=== PATIENT | male | born 1965 | race Caucasian/White ===

== ENCOUNTER 2019-01-12 13:42 | Day surgery (SDC) | payer OTHER, SELFPAY ==
--- NOTE | 2019-01-12 | PATH_ITS ---
[facility] Accession Number: [id number] . 01 Material submitted: . PART A: body - POLYP AT 60CM PART B: colon - ASCENDING COLON BX PART C: body - POLYP AT 50CM PART D: body - POLYP AT 30CM . 02 Diagnosis: A. Colon, Polyp at 60 cm, Biopsy: Tubular adenoma. . B. Ascending Colon, Biopsy: Favor inflammatory polyp. Negative for dysplasia and malignancy. . C. Colon, Polyp at 50 cm, Biopsy: Tubular adenoma. . D. Colon, Polyp at 30 cm, Biopsy: Tubular adenoma. MR/01/16/2019 . 02 Electronically signed: . Amelia Lancaster MD, Pathologist NPI- [id number] . 01 Gross description: . Received four formalin-filled containers, each labeled with the patient's name: . A. In a container labeled polyp at 60 cm, the specimen consists of a 0.3 cm portion of tissue, which is entirely submitted in cassette A. B. In a container labeled ascending colon, are two 0.2-0.3 cm portions of tissue, entirely submitted in cassette B. C. In a container labeled polyp at 50 cm, source confirmed per client, the specimen consists of a 0.2 cm portion of tissue, entirely submitted in cassette C. D. In a container labeled polyp at 30 cm, the specimen consists of a 0.2 cm portion of tissue, entirely submitted in cassette D. ([id number]) /FRR . 02 Pathologist provided ICD-10: D12.6 . 02 CPT . 952589, 640691, 508871, 819556 Performed at: [address] [id number] MD Franck Colunga MD Phone: [phone] Performed at: 02 [facility] [address] [place] [id number] MD Amelia Lancaster MD Phone: [phone]
[2019-01-12 14:40] VITALS: BP 123/73; PULSE 79; RESP 16; TEMP 37; O2SAT 98
[2019-01-12 14:49] VITALS: BMI 49.6
[2019-01-12] MEDS: SODIUM CHLORIDE 0.9% 1,000 ML 200 ML IV (15:10)
--- NOTE | 2019-01-12 16:02 | PM.HP.1 ---
History of Present Illness Date Patient Seen: 01/12/19 Time Patient Seen: 16:02 Chief complaint: [id number] Colonoscopy Narrative: Screening colonoscopy with a family history of colon cancer patient has had previous colonoscopies finding no polyps Patient History Social History household members: spouse Family & Social History Social History: household members spouse Meds Home Medications Medication Instructions Recorded Confirmed Type levothyroxine 25 mcg PO DAILY 01/12/19 01/12/19 History levothyroxine [Synthroid] 200 mcg PO QAM 01/12/19 01/12/19 History lisinopril 5 mg PO DAILY 01/12/19 01/12/19 History Allergies Allergy/AdvReac Type Severity Reaction Status Date / Time acetaminophen [From NyQuil] Allergy Anaphylaxis Verified 01/12/19 15:00 dextromethorphan Allergy Anaphylaxis Verified 01/12/19 15:00 [From NyQuil] doxylamine [From NyQuil] Allergy Anaphylaxis Verified 01/12/19 15:00 Tetanus Vaccines and Toxoid Allergy Verified 01/12/19 15:00 pseudoephedrine AdvReac Headache Verified 01/12/19 15:00 [From Actifed] triprolidine [From Actifed] AdvReac Headache Verified 01/12/19 15:00 Review of Systems Review of Systems All systems reviewed & are unremarkable except as noted in HPI and below Exam Vital Signs (past 8 hours): - 01/12/19 14:40 Temperature 98.6 F Pulse Rate 79 Respiratory Rate 16 Blood Pressure 123/73 Pulse Oximetry 98 Oxygen Delivery Method Room Air Narrative Exam Narrative: Patient is alert and oriented Lungs are clear with no rales or wheezes Heart regular rhythm no murmur Patient is morbidly obese abdominal exam is unrevealing. Rectal will be done at time of colonoscopy Assessment & Plan Assessment & Plan narrative: Patient is 6 super morbidly obese BMI of nearly 50 has a family history of colon cancer he is here for screening is had prior colonoscopies in understands and has no questions
[2019-01-12] MEDS: fentaNYL 250 MCG/5 ML INJ IV (16:30)
--- NOTE | 2019-01-12 16:30 | PM.OP.ENDO ---
Operative Date/Time/Diagnoses Date of procedure: 01/12/19 Time of procedure: 16:30 Pre-op diagnosis: Family history of colon cancer Post-op diagnosis: other (Multiple small polyps scattered throughout the colon at 30 50 and 60 cm ) Procedure & Clinicians Study performed: Total colonoscopy and polypectomy at 3550 and 60 cm with an additional biopsy in the ascending colon of a likely lipoma Same procedure as scheduled: Yes Surgeon: Davin Rodriguez Procedure Notes SCOAP/Timeout: Was done Procedure in detail: The patient was properly identified during surgical pause was given a total of 5 mg of Versed and 150 micro g of fentanyl throughout the procedure and remained comfortable. The flexible fiberoptic colonoscope was inserted transanally to the cecum. Patient had numerous small 5 mm polyps 1 at 30 50 and 60 cm these were all removed with the cold forceps and submitted. In the ascending colon there was most likely a submucosal lipoma and I did a biopsy there just to confirm there was no adenomatous tissue there I did not attempt to remove this subcu lipoma procedures very well tolerated Scope withdrawal time: 10 Sedation minutes: 20 Findings: polyp Specimen(s): other (Polyp at 30 50 and 60 cm with a biopsy in the ascending colon) Complications: none Recommendations: Colonscopy in 1 year
[2019-01-12] MEDS: MIDAZOLAM 5 MG/5 ML VIAL IV (16:31)
[2019-01-12 16:34] VITALS: BP 123/62; PULSE 72; RESP 16; TEMP 37.3; O2SAT 95
[2019-01-12 16:38] VITALS: BP 130/72; PULSE 72; RESP 16; O2SAT 96
== END 2019-01-12 17:04 | disposition home or self-care (01) ==
PROVIDERS: Visit Provider Surgery
PROC: 0DJD8ZZ Inspection of Lower Intestinal Tract, Via Natural or Artificial Opening Endoscopic (ICD-10-PCS; CPT 45378; principal; 2019-01-12 16:00)
DX: Z12.11 Encounter for screening for malignant neoplasm of colon (principal); Z80.0 Family history of malignant neoplasm of digestive organs; E66.01 Morbid (severe) obesity due to excess calories; Z68.43 Body mass index [BMI] 50.0-59.9, adult
CPT/HCPCS: 45380; 88305; 99152; J2250; J3010

== ENCOUNTER → 2020-01-08 09:13 | Outpatient (CLI) | payer OTHER, SELFPAY ==
[2020-01-09 14:44] LABS: COVID19 Sendout Not Detected (Not Detect)
== END ==
PROVIDERS: PCP Internal Medicine; Visit Provider Physician Assistant
DX: Z11.59 Encounter for screening for other viral diseases (principal)
CPT/HCPCS: 87635

== ENCOUNTER 2020-01-11 08:42 | Day surgery (SDC) | payer OTHER, SELFPAY ==
--- NOTE | 2020-01-11 | PATH_ITS ---
[facility] Accession Number: [id number] . 01 Material submitted: . PART A: colon - COLON POLYP AT 75CM PART B: colon - COLON POLYP AT 55CM . 02 Diagnosis: A. Colon at 75 cm, Polyp: Tubular adenoma. . B. Colon at 55 cm, Polyp: Tubular adenoma. MRV 01/14/2020 1121 Local . 02 Electronically signed: . Jose Wallace MD, PhD, Pathologist NPI- [id number] . 01 Gross description: . Part A: COLON POLYP AT 75CM: Received in formalin is 1 fragment(s) of calixto, soft tissue measuring 0.4 x 0.4 x 0.3 cm submitted entirely in 1 cassette(s) Part B: COLON POLYP AT 55CM: Received in formalin is 1 fragment(s) of calixto, soft tissue measuring 0.5 x 0.2 x 0.2 cm submitted entirely in 1 cassette(s) /QBJ 01/12/2020 0426 Local . 02 Pathologist provided ICD-10: D12.6 . 02 CPT . 255135, 367377 Performed at: 01 [facility] [address] [place] [address], [place], [place] [id number] MD Franck Colunga MD Phone: [phone] Performed at: 02 [facility] [address] [place], [place] [id number] MD Amelia Lancaster MD Phone: [phone]
[2020-01-11 08:55] VITALS: BP 135/82; PULSE 77; RESP 20; TEMP 36.7; O2SAT 98; BMI 44.9
[2020-01-11] MEDS: SODIUM CHLORIDE 0.9% 1,000 ML 200 ML IV (09:03)
--- NOTE | 2020-01-11 09:35 | PM.HP.1 ---
History of Present Illness History of Present Illness Date Patient Seen: 01/11/20 Time Patient Seen: 09:35 Chief complaint: [id number] Narrative: 54-year-old man with history of sleep apnea, morbid obesity with a BMI of 45, hypothyroid, hypertension, family history of colon cancer, and multiple polyps found on his colonoscopy 1 year ago. He was recommended by Dr. Rodriguez to have a 1 year follow-up and he is here for that at this time. He denies any intervening symptoms of melena, hematochezia, unexplained weight loss, unexplained abdominal pain. ROS: Thirteen system review is otherwise negative other than as mentioned below and in HPI. PE: GENERAL: Well groomed and cooperative. Morbidly obese. Appears stated age. Answers questions promptly and appropriately. Vital signs noted. HENT: Normocephalic, atraumatic. Hearing intact. EYES: Conjunctiva pink, sclera white, no periorbital swelling. CARDIOVASCULAR: Regular rate. No pedal edema. RESPIRATORY: Non-tachypneic, breathing comfortably on room air. GASTROINTESTINAL: Abdomen soft and non-distended GENITALURINARY: No flank tenderness. MUSCULOSKELETAL: Equal tone and mass bilaterally. SKIN: Warm, dry, soft, appropriate color for ethnicity. No other lesions, rashes, or wounds. NEURO: Alert and Oriented X 3. No gross sensory deficits, or cognitive issues. PSYCH: Appropriate affect and mood. Patient History Family & Social History Social History: household members spouse Tobacco & Substance use: Smoking Status Former smoker alcohol intake frequency holiday/special occasion Substance Use Type does not use Meds Home Medications and Allergies Home Medications Medication Instructions Recorded Confirmed Type levothyroxine 25 mcg PO DAILY 01/12/19 01/11/20 History levothyroxine [Synthroid] 200 mcg PO QAM 01/12/19 01/11/20 History lisinopril 5 mg PO DAILY 01/12/19 01/11/20 History Allergies Allergy/AdvReac Type Severity Reaction Status Date / Time acetaminophen [From NyQuil] Allergy Anaphylaxis Verified 01/11/20 08:42 dextromethorphan Allergy Anaphylaxis Verified 01/11/20 08:42 [From NyQuil] doxylamine [From NyQuil] Allergy Anaphylaxis Verified 01/11/20 08:42 Tetanus Vaccines and Toxoid Allergy Verified 01/11/20 08:42 pseudoephedrine AdvReac Headache Verified 01/11/20 08:42 [From Actifed] triprolidine [From Actifed] AdvReac Headache Verified 01/11/20 08:42 Exam Vital Signs (past 8 hours): - 01/11/20 08:55 Temperature 98.1 F Pulse Rate 77 Respiratory Rate 20 Blood Pressure 135/82 Pulse Oximetry 98 Oxygen Delivery Method Room Air Assessment & Plan Assessment and plan (1) KEVON (obstructive sleep apnea): Status: Acute (2) Morbid obesity with BMI of 40.0-44.9, adult: Status: Acute (3) Personal history of colonic polyps: Status: Acute (4) Family history of colon cancer: Status: Acute Assessment & Plan narrative: Risks and benefits of screening colonoscopy and possible polypectomy were discussed with the patient including risk of bleeding, perforation, need for additional procedures, risks of anesthesia. We have discussed the increased risk of the procedure given his severe morbid obesity and his obstructive sleep apnea. The patient desires to proceed with the colonoscopy procedure. COVID-19 COVID-19 status: Negative Result date/Date tested (Pos, Neg/Pending): 01/08/20 Time Spent With Patient Time with patient: 15-24 minutes Quality VTE Deep Vein Thrombosis/Pulmonary Embolism Present on Admission: No
--- NOTE | 2020-01-11 10:20 | PM.OP.ENDO ---
Operative Date/Time/Diagnoses Date of procedure: 01/11/20 Time of procedure: 10:20 Pre-op diagnosis: Personal history of colon polyps, family history of colon cancer Procedure & Clinicians Indications: Patient had multiple polyps removed [address] Rodriguez, and was recommended to have a follow-up colonoscopy at this time Procedural sedation with fentanyl and Versed given by the endoscopist Surgeon: Carmina Dyson Procedure Notes SCOAP/Timeout: Perform Procedure in detail: The patient was brought to the room and placed in left lateral decubitus position with all bony prominences padded. A time-out was performed and then the patient was given procedural sedation starting with [4] mg of Versed and [100] mcg of fentanyl. A total of 5 mg of Versed and 150 micro g of fentanyl were given for the entire procedure. Vtals were monitored throughout the procedure and remained stable. Once adequately sedated, the procedure was begun. A rectal exam was performed revealing [no abnormalities]. The colonoscope was then introduced to the rectum and advanced to the cecum in the usual fashion. []The cecum was identified by the appendiceal orifice, the mucosal tri-fold, and the ileocecal valve. A large Submucosal prominence about 2 cm was seen and is 120 cm which may have been an abnormal fold or a submucosal neoplasm such as a lipoma or stromal tumor a smaller submucosal prominence which was photographed by Dr. Robb last year was also seen at 100 cm. Adenomatous appearing polyps were seen at 75 cm and 55 cm and removed with hot snare. The scope was then retracted while rotating side to side and examining each mucosal fold. [] At the conclusion of the procedure retroflexion was performed and [small grade 1-2 internal hemorrhoids without stigmata of bleeding were seen]. The scope was then withdrawn from the rectum the procedure was concluded. The patient tolerated the procedure well and was transferred to the PACU in stable condition. Scope withdrawal time: 21 Sedation minutes: 30 Findings: polyp and other findings (Submucosal prominence possible stromal tumor near cecum) Specimen(s): other (Two adenomatous appearing polyps) Complications: none Impression: Submucosal prominence needs to be evaluated with CT or MRI imaging, 2 polyps on 1 year interval colonoscopy Post-procedure Recommendations: Colonscopy in 1 year and Other recommendation (CT or MRI imaging to evaluate submucosal neoplasm in the right colon) Follow up: weeks (Follow-up in 2 weeks) Disposition: PACU
[2020-01-11] MEDS: MIDAZOLAM 5 MG/5 ML VIAL IV (10:28)
[2020-01-11] MEDS: fentaNYL 250 MCG/5 ML INJ IV (10:28)
[2020-01-11 10:57] VITALS: BP 145/89; PULSE 63; RESP 25; TEMP 37.2; O2SAT 94
[2020-01-11 11:00] VITALS: BP 109/60; PULSE 65; RESP 27; O2SAT 95
[2020-01-11 11:05] VITALS: BP 106/66; PULSE 65; RESP 21; TEMP 36.6; O2SAT 95
[2020-01-11 11:14] VITALS: BP 114/57; PULSE 63; RESP 24; TEMP 36.3; O2SAT 97
== END 2020-01-11 11:21 | disposition home or self-care (01) ==
PROVIDERS: PCP Internal Medicine; Referring Provider Surgery; Visit Provider Surgery
PROC: 0DJD8ZZ Inspection of Lower Intestinal Tract, Via Natural or Artificial Opening Endoscopic (ICD-10-PCS; CPT 45378; principal; 2020-01-11 10:00)
DX: Z12.11 Encounter for screening for malignant neoplasm of colon (principal); Z80.0 Family history of malignant neoplasm of digestive organs; Z68.41 Body mass index [BMI] 40.0-44.9, adult; E66.01 Morbid (severe) obesity due to excess calories; G47.33 Obstructive sleep apnea (adult) (pediatric); K64.0 First degree hemorrhoids; D12.6 Benign neoplasm of colon, unspecified
CPT/HCPCS: 45385; 99152; 99153; J2250; J3010

== ENCOUNTER → 2020-01-18 13:36 | Outpatient (CLI) | payer OTHER, SELFPAY ==
--- NOTE | 2020-01-18 13:42 | DI.CT.S_ITS ---
PROCEDURE: CT ABDOMEN PELVIS W CON INDICATIONS: intramural/submucosal mass within wall of right colon/cecum TECHNIQUE: After the administration of intravenous contrast, 5 mm thick sections acquired from the diaphragm to the symphysis. 5 mm coronal and sagittal reformats were acquired. For radiation dose reduction, the following was used: automated exposure control, adjustment of mA and/or kV according to patient size. COMPARISON: None. FINDINGS: Image quality: Somewhat diminished by large body habitus.. ABDOMEN: Lung bases: Lung bases are clear. Heart size is normal. Solid organs: Liver is normal in size and enhancement and demonstrates prominent fatty infiltration. No hepatic mass lesion is seen.. Gallbladder is contracted . Biliary system is non dilated. Pancreas enhances normally. Spleen is normal in size and enhancement. No adrenal nodules. Kidneys demonstrate normal size and enhancement, without hydronephrosis. What likely is a cyst is seen at the anterior cortex of the right mid kidney, series 2, image 45. This is water in radiodensity at 10.9 Hounsfield units and blurred by body habitus. Peritoneum and bowel: Bowel loops demonstrate normal wall thickness and caliber. No free fluid or air. Nodes and vessels: No retroperitoneal or mesenteric adenopathy by size criteria. Aorta and inferior vena cava are normal in size. Miscellaneous: No ventral hernias. PELVIS: Genitourinary: Bladder wall thickness is normal. Miscellaneous: No inguinal hernias or adenopathy. Bones: No suspicious bony lesions. No vertebral body compression fractures. What appears to be a normal appendix, without adjacent inflammation, can be seen wrapping posterior to the cecum, and an adjacent extra mural mass or evidence of mucosal mass lesion is not seen at or adjacent to the cecum. IMPRESSION: Normal appendix found. No mass lesion identified at or adjacent to the cecum. Fatty infiltration throughout the liver, moderately contracted gallbladder incidentally noted. Dictated by: Harley Sutton M.D. on 01/18/2020 at 14:25 Approved by: Harley Sutton M.D. on 01/18/2020 at 14:29
== END ==
PROVIDERS: PCP Internal Medicine; Referring Provider Surgery; Visit Provider Surgery
DX: D17.5 Benign lipomatous neoplasm of intra-abdominal organs (principal); K76.0 Fatty (change of) liver, not elsewhere classified
CPT/HCPCS: 74177; Q9967

== ENCOUNTER → 2021-03-25 09:20 | Outpatient (CLI) | payer OTHER, SELFPAY ==
[2021-03-25 11:23] LABS: COVID19 -Nasal RAPID Negative (Negative)
== END ==
PROVIDERS: PCP Internal Medicine; Visit Provider Surgery
DX: Z20.822 Contact with and (suspected) exposure to COVID-19 (principal); Z01.812 Encounter for preprocedural laboratory examination
CPT/HCPCS: 87635; C9803

== ENCOUNTER 2021-03-26 13:27 | Day surgery (SDC) | payer OTHER, SELFPAY ==
--- NOTE | 2021-03-26 | PATH_ITS ---
[facility] Accession Number: [id number] . 01 Material submitted: . PART A: cecum - CECUM POLYP X2 PART B: colon - TRANSVERSE COLON POLYP X2 PART C: colon - DESCENDING COLON POLYP PART D: rectum - RECTUM POLYP . 02 Diagnosis: A. Cecal Polyps, Biopsies: Colonic mucosa with no diagnostic abnormality, consistent with polypoid redundancy x2. Negative for serrated lesion, dysplasia or malignancy. . B. Transverse Colon Polyps, Biopsies: Fragments of tubular adenoma (two polyps removed). . C. Descending Colon Polyp, Biopsy: Tubular adenoma. . D. Rectal Polyp, Biopsy: Tubular adenoma. MRV 03/30/2021 1345 Local . 02 Electronically signed: . Jose Wallace MD, PhD, Pathologist NPI- [id number] . 01 Gross description: . Part A: CECUM POLYP X2: Received in formalin are 2 fragment(s) of calixto, soft tissue measuring 0.3 x 0.2 x 0.2 cm to 0.3 x 0.1 x 0.1 cm submitted entirely in 1 cassette(s) Part B: TRANSVERSE COLON POLYP X2: Received in formalin are multiple fragment(s) of calixto, soft tissue measuring 2.7 x 0.4 x 0.2 cm in aggregate submitted entirely in 1 cassette(s) Part C: DESCENDING COLON POLYP: Received in formalin is 1 fragment(s) of calixto, soft tissue measuring 0.8 x 0.3 x 0.2 cm submitted entirely in 1 cassette(s) Part D: RECTUM POLYP: Received in formalin is 1 fragment(s) of calixto, soft tissue measuring 0.4 x 0.2 x 0.2 cm submitted entirely in 1 cassette(s) /JESUS 03/27/2021 0221 Local . 02 Pathologist provided ICD-10: D12.3, D12.4, D12.8 . 02 CPT . 115259, 354248, 374635, 731439 Performed at: 01 [facility] [address] [id number] MD Franck Colunga MD Phone: [phone] Performed at: 02 [facility] [address] [place], [place] [id number] MD Amelia Lancaster MD Phone: [phone]
[2021-03-26 13:52] VITALS: BP 144/77; PULSE 81; RESP 14; TEMP 36.8; O2SAT 97; BMI 50.1
--- NOTE | 2021-03-26 14:59 | PM.HP.1 ---
History of Present Illness History of Present Illness Date Patient Seen: 03/26/21 Time Patient Seen: 15:00 Chief complaint: SDC Narrative: The patient presents for colorectal sreening. He has had numerous colonoscopies greater 10 secondary to a personal history of colonic polyps as well as family history of colon cancer. His most recent colonoscopy was 1 year ago which demonstrated multiple benign polyps. On further history denies any recent gastrointestinal symptoms. No nausea, vomiting, abdominal pain, loss of appetite, unexplained weight loss, change in bowel habits, diarrhea, constipation, melena, hematochezia, or bright red blood per rectum. Patient History Family & Social History Social History: household members spouse Tobacco & Substance use: Smoking Status Former smoker alcohol intake current alcohol intake frequency holiday/special occasion Substance Use Type does not use Meds Home Medications and Allergies Home Medications Medication Instructions Recorded Confirmed Type levothyroxine 200 mcg tablet 200 mcg PO QAM 01/12/19 01/31/20 History (Synthroid) levothyroxine 25 mcg/mL oral 25 mcg PO DAILY 01/12/19 03/26/21 History solution lisinopril 5 mg tablet 5 mg PO DAILY 01/12/19 03/26/21 History levothyroxine 200 mcg tablet 250 mcg PO DIRECTED 03/26/21 03/26/21 History (Synthroid) Allergies Allergy/AdvReac Type Severity Reaction Status Date / Time acetaminophen [From NyQuil] Allergy Anaphylaxis Verified 01/31/20 09:04 dextromethorphan Allergy Anaphylaxis Verified 01/31/20 09:04 [From NyQuil] doxylamine [From NyQuil] Allergy Anaphylaxis Verified 01/31/20 09:04 Tetanus Vaccines and Toxoid Allergy Verified 01/31/20 09:04 pseudoephedrine AdvReac Headache Verified 01/31/20 09:04 [From Actifed] triprolidine [From Actifed] AdvReac Headache Verified 01/31/20 09:04 Exam Vital Signs (past 8 hours): - 03/26/21 13:52 Temperature 98.2 F Pulse Rate 81 Respiratory Rate 14 Blood Pressure 144/77 H Pulse Oximetry 97 Oxygen Delivery Method Room Air Narrative Exam Narrative: Constitutional-he is oriented to person, place and time. No apparent distress Cardiovascular- regular rate, no peripheral edema Pulmonary-unlabored respiratory effort, no audible wheezing Abdominal-soft, non-tender, non-distended Musculoskeletal-no cyanosis or clubbing Neurological-nonfocal, normal strength throughout, Skin-warm and dry Assessment & Plan Assessment and plan (1) Personal history of colonic polyps: Status: Acute Assessment & Plan narrative: The patient requires colorectal screening and colonoscopy is recommended. Technical details were discussed. Risks, benefits, alternatives explained. Risks including but not limited to myocardial infarction, aspiration, bleeding, pain, missed lesion, incomplete examination, need for further radiographic studies, colonic perforation, and need for major abdominal surgery were discussed. All questions were answered to their satisfaction, and they are in agreement with this plan. Time Spent With Patient Critical Care time: I spent a total of [] minutes of critical care time on this patient's care today; this time is exclusive of procedural time.
[2021-03-26] MEDS: MIDAZOLAM 5 MG/5 ML VIAL IV (15:12)
[2021-03-26] MEDS: fentaNYL 250 MCG/5 ML INJ IV (15:12)
--- NOTE | 2021-03-26 15:38 | PM.OP.COLON ---
Operative Date/Time/Diagnoses Date of procedure: 03/26/21 Time of procedure: 15:39 Pre-op diagnosis: Personal history of colonic polyps, family history of colon cancer Post-op diagnosis: same Procedure & Clinicians Study performed: Colonoscopy Same procedure as scheduled: Yes Indications: Personal history of colonic polyps, family history of colon cancer Surgeon: Chano Castellon Procedure Notes Procedure in detail: Medications: Conscious sedation using 6mg IV midazolam and 150mcg IV of fentanyl The history and physical was performed/updated and the patient is ASA class is 3. The procedure was discussed in detail with the patient. Potential risks complications including infection, bleeding, missed diagnosis, perforation, need for surgery, and were explained. Their questions were answered and informed consent was obtained. Patient was brought to the procedure room and placed standard monitoring equipment. The patient's vital signs were monitored continuously throughout the entire procedure. Prior to starting time-out was performed. The patient was placed in the left lateral recumbent position. Procedural sedation was administered. Examination began with a thorough inspection of the perianal area there was no evidence of fissures, fistulae, external hemorrhoids or cutaneous malignancy. The colonoscopy scope was then placed into the anal canal and was advanced to the cecum, which was identified by the ileocecal valve, the appendiceal orifice and the confluence of the taenia. The scope was then slowly withdrawn examining colon thoroughly in all directions, irrigating it of any residual stool. FINDINGS 1. Submucosal mass lipoma right colon 2. Cecal polyps 5 mm each x2 removed biopsy forceps 3. Transverse polyps less than 1 cm each removed with cold snare 4. Descending colonic polyp 5 mm removed with snare cold 5. Rectal polyp 5 mm removed with biopsy forceps The patient tolerated the procedure well. They will be discharged once criteria are met. The prep was of good/excellent quality. The withdrawl time was 20 minutes. The sedation time was 30 minutes. Specimen(s): other (cecum x 2, transverse x 2, descending colon, rectum) Impression: colonic polyps Post-procedure Recommendations: Colonoscopy in 1 year Disposition: same day surgery
[2021-03-26 15:42] VITALS: BP 124/71; PULSE 74; RESP 20; TEMP 36.9; O2SAT 98
[2021-03-26 15:45] VITALS: BP 96/45; PULSE 73; RESP 14; O2SAT 98
[2021-03-26 15:58] VITALS: BP 102/57; PULSE 73; RESP 14; O2SAT 98
[2021-03-26 16:02] VITALS: BP 104/59; PULSE 71; RESP 10; TEMP 36.8; O2SAT 99
[2021-03-26 16:06] VITALS: BP 115/63; PULSE 72; RESP 15; TEMP 36.9; O2SAT 100
[2021-03-26 17:50] VITALS: BMI 50.1
== END 2021-03-26 17:20 | disposition home or self-care (01) ==
PROVIDERS: PCP Internal Medicine; Referring Provider Surgery; Visit Provider Surgery
PROC: 0DJD8ZZ Inspection of Lower Intestinal Tract, Via Natural or Artificial Opening Endoscopic (ICD-10-PCS; CPT 45378; principal; 2021-03-26 15:15)
DX: Z12.11 Encounter for screening for malignant neoplasm of colon (principal); Z86.010 Personal history of colon polyps; Z80.0 Family history of malignant neoplasm of digestive organs; D17.79 Benign lipomatous neoplasm of other sites; D12.3 Benign neoplasm of transverse colon; D12.4 Benign neoplasm of descending colon; D12.8 Benign neoplasm of rectum
CPT/HCPCS: 45385; 45380; 99152; 99153; J2250; J3010

== ENCOUNTER → 2021-10-05 14:26 | Outpatient (CLI) | payer OTHER, SELFPAY ==
--- NOTE | 2021-10-05 14:29 | DI.ECHO.S_ITS ---
[place] [facility]---------+ [facility] +---------+ : : [address] : : : : [id number] : : : : Phone: [phone]---------+ Echocardiogram Report + + :Name: STEPHANI JACKMAN Study Date: 10/05/2021 Height: 73 in : :[facility] ReadingLocation: Weight: 380 lb : : Gender: Male BSA: 2.8 m2 : :: 1965 Age: 56 yrs BP: 156/88 mmHg: :Reason For Study: DYSPNEA : :Ordering Physician: TRIXIE, : :AMADOR Performed By: Alycia Moses : :Referring: AMADOR MARCUM : + + Interpretation Summary The study quality was technically difficult. The ejection fraction is estimated to be 60-65%. There is mild concentric left ventricular hypertrophy. The right ventricle is normal in size and function. There is mild to moderate aortic regurgitation. No prior studies available for comparison. Procedure: A two-dimensional transthoracic echocardiogram with color flow and Doppler was performed. The study quality was technically difficult. There is no prior echocardiogram noted for this patient. The patient was in sinus rhythm with heart rates between 62-75 bpm during the exam. Left Ventricle: The left ventricle is normal in size. There is mild concentric left ventricular hypertrophy. The ejection fraction is estimated to be 60-65%. There are no obvious focal wall motion abnormalities noted but poor endocardial definition reduces the sensitivity for the detection of such. Diastolic parameters suggest probable normal left ventricular diastolic function and normal filling pressures. Right Ventricle: The right ventricle is normal in size and function. Atria: The left atrial size is normal. Right atrial size is normal. There is no Doppler evidence for an interatrial shunt. Mitral Valve: The mitral valve is normal in structure and function. There is mild mitral annular calcification. There is trace mitral regurgitation. Aortic Valve: The aortic valve opens well. The aortic valve is trileaflet. There is no aortic valve stenosis. There is mild to moderate aortic regurgitation. Tricuspid Valve: The tricuspid valve is normal in structure and function. There is trace tricuspid regurgitation. Pulmonic Valve: The pulmonic valve leaflets are thin and pliable; valve motion is normal. There is no pulmonic valvular regurgitation. Great Vessels: The aortic root is normal size. The ascending aorta is normal in size. The inferior vena cava was not well visualized. Pericardium/ Pleura There is no pericardial effusion. There is no pleural effusion. MMode/2D Measurements & Calculations LVIDd: 5.7 cm LVOT diam: 2.0 cm LVIDs: 3.6 cm Ao root diam: 3.7 cm FS: 37.9 % asc Aorta Diam: 3.4 cm IVSd: 1.1 cm LVPWd: 1.3 cm LV hill. diameter/BSA (cm/m^2): 2.0 LV sys. diameter/BSA (cm/m^2): 1.3 LA A2 area: 21.7 cm2 RA long axis: 4.9 cm LA A4 area: 20.7 cm2 RA area: 14.1 cm2 LA length (vol): 5.6 cm RA vol: 34.2 ml LA vol: 67.9 ml RA : 12.1 ml/m2 LA vol index: 24.0 ml/m2 RVD1 (basal): 2.6 cm RVD2 (mid): 2.0 cm TAPSE: 2.5 cm Doppler Measurements & Calculations Ao V2 max: 144.1 cm/sec LVOT Max Siobhan: 129.2 cm/sec Ao V2 mean: 100.9 cm/sec LV V1 max P.7 mmHg Ao max P.5 mmHg LV V1 VTI: 25.4 cm Ao mean P.3 mmHg JESUS(I,D): 2.8 cm2 Ao V2 VTI: 28.4 cm JESUS(V,D): 2.8 cm2 sev ratio: 0.89 JESUS indexed to BSA (cm^2/m^2): 0.99 MV E max siobhan: 100.2 cm/sec PA V2 max: 113.6 cm/sec MV A max siobhan: 74.7 cm/sec PA V2 mean: 78.7 cm/sec MV E/A: 1.3 PA mean P.7 mmHg Med Peak E' Siobhan: 7.5 cm/sec PA pr(Accel): 36.2 mmHg E/E' med: 13.4 Lat Peak E' Siobhan: 7.6 cm/sec E/E' lat: 13.1 E/e' average: 13.3 MV dec time: 0.22 sec [facility]): 79.4 ml Reading Physician:HENRY
== END ==
PROVIDERS: PCP Internal Medicine; Referring Provider Internal Medicine; Visit Provider Internal Medicine
DX: R06.00 Dyspnea, unspecified (principal); I35.1 Nonrheumatic aortic (valve) insufficiency
CPT/HCPCS: 93306

== ENCOUNTER 2024-12-12 08:07 | Day surgery (SDC) | payer OTHER, SELFPAY ==
--- NOTE | 2024-12-12 | PATH_ITS ---
[facility] Accession Number: [id number] No. of containers..01 Tissue . 01 Material submitted: . colon - COLON, RIGHT POLYPS X3 . 01 Diagnosis: RIGHT COLON POLYPS: Colonic mucosa with no evidence of neoplasm, consistent with polypoid redundancies (3 polyps removed). Negative for serrated lesion, dysplasia, or malignancy. Additional step sections examined. [facility] 12/18/2024 1156 Local . 01 Electronically signed: . Jose Wallace MD, PhD, Pathologist NPI- [id number] . 01 Gross description: . COLON, RIGHT POLYPS X3: Received in formalin are multiple fragment(s) of calixto, soft tissue measuring 0.1 x 0.1 x 0.1 cm to 0.3 x 0.2 x 0.2 cm submitted entirely in 1 cassette(s) /RAJIV 12/14/2024 0022 Local . 01 Pathologist provided ICD-10: K63.5 . 01 CPT . 214910 Specimen Comment: A courtesy copy of this report has been sent to [phone] Performed at: [address] [facility] [address], [place], [place] [id number] MD Franck Colunga MD Phone: [phone]
[2024-12-12 08:24] VITALS: BP 128/72; PULSE 71; RESP 16; TEMP 36.4; O2SAT 98
--- NOTE | 2024-12-12 08:36 | PM.HP.IH.1 ---
History of Present Illness History of Present Illness Date Patient Seen: 12/12/24 Chief complaint: Colonoscopy Narrative: Family history of colon cancer in father with an uncle with colon polyps. Unclear whether patient has had polyps however has required close follow-up in the past. Last colonoscopy 3 years ago [facility] Medical History (Updated 09/14/21 @ 18:33 by Alonzo Mcleod MD) Obesity Hypogonadism Sleep apnea Hypertension Hypothyroidism Surgical History (Updated 06/15/21 @ 12:20 by Alonzo Mcleod MD) History of rhinoplasty Family History (Updated 06/15/21 @ 12:19 by Alonzo Mcleod MD) Father Colon cancer Grandmother Breast cancer Social History household members: spouse alcohol intake: current substance use type: does not use Meds Home Medications and Allergies Home Medications ?Medication ?Instructions ?Recorded ?Confirmed ?Type lisinopril 5 mg tablet 5 mg PO DAILY 01/12/19 09/14/21 History levothyroxine 200 mcg tablet 250 mcg PO DIRECTED 03/26/21 09/14/21 History (Synthroid) testosterone 50 mg/5 gram (1 %) 1 tube transdermal QAM 06/15/21 09/14/21 History transdermal gel aspirin 81 mg tablet 81 mg PO DAILY 09/14/21 09/14/21 History sodium,potassium,mag sulfates 17.5 See Rx Instructions PO .COMPLEX 11/02/24 Rx gram-3.13 gram-1.6 gram oral soln #354 mL (Suprep Bowel Prep Kit) Allergies Allergy/AdvReac Type Severity Reaction Status Date / Time acetaminophen (From NyQuil) Allergy Anaphylaxis Verified 01/31/20 09:04 dextromethorphan (From Allergy Anaphylaxis Verified 01/31/20 09:04 NyQuil) doxylamine (From NyQuil) Allergy Anaphylaxis Verified 01/31/20 09:04 Tetanus Vaccines and Toxoid Allergy Verified 01/31/20 09:04 pseudoephedrine (From AdvReac Headache Verified 01/31/20 09:04 Actifed) triprolidine (From Actifed) AdvReac Headache Verified 01/31/20 09:04 Exam Vital Signs (past 8 hours): - 12/12/24 08:24 Temperature 97.6 F Pulse Rate 71 Respiratory Rate 16 Blood Pressure 128/72 Pulse Oximetry 98 Oxygen Delivery Method Room Air Oxygen Delivery Method Room Air Narrative Exam Narrative: oropharynx free of lesions Chest clear to auscultation percussion Cardiac exam reveals no S3 or murmur Assessment & Plan Assessment & Plan narrative: probable personal history of colon polyps with close follow-up. Family history of colon cancer in father and colon polyps in an uncle. Need for follow-up colonoscopy at 3 year interval Time-Based Coding :: [TOTAL MINUTES] spent with patient and on the chart (including review of chart, obtaining history, exam, reviewing outside data, placing orders, documenting exam and treatment plan, and counseling patient) on [DATE]. PROFEE Student Support Counselor Document charge(s): No
--- NOTE | 2024-12-12 08:37 | PM.OP.COLON ---
Operative Date/Time/Diagnoses Date of procedure: 12/12/24 Time of procedure: 09:29 Pre-op diagnosis: see indication and findings Post-op diagnosis: same Procedure & Clinicians Study performed: colonoscopy Same procedure(s) as scheduled: Yes Indications: family history of colon cancer and polyps with personal history of probable precancerous polyps Surgeon: Mery Cannon Procedure Notes Procedure in detail: after informed consent was obtained the patient was placed in left lateral decubitus position. The video colonoscope was introduced the rectum slowly advanced cecum. Preparation was good. On slow withdrawal mucosa was carefully examined. The scope was removed. The patient tolerated procedure well. Blood loss none Complications none Sedation mac Findings 1. 3 diminutive polyps in the right colon Jumbo biopsy removed completely 2. Otherwise negative colonoscopy to cecum Patient should have follow-up colonoscopy in 3 years
[2024-12-12] MEDS: LACTATED RINGERS 1,000 ML 42 ML IV (08:44)
[2024-12-12 09:33] VITALS: BP 115/59; PULSE 60; RESP 15; TEMP 37.2; O2SAT 92
[2024-12-12 09:44] VITALS: BP 117/65; PULSE 60; RESP 15; TEMP 37.1; O2SAT 97
== END 2024-12-12 09:55 | disposition home or self-care (01) ==
PROVIDERS: Referring Provider Internal Medicine Gastroenterology; Visit Provider Internal Medicine Gastroenterology
PROC: 0DJD8ZZ Inspection of Lower Intestinal Tract, Via Natural or Artificial Opening Endoscopic (ICD-10-PCS; CPT 45378; principal; 2024-12-12 09:15)
DX: Z12.11 Encounter for screening for malignant neoplasm of colon (principal); Z80.0 Family history of malignant neoplasm of digestive organs; Z86.0100 Personal history of colon polyps, unspecified; K63.5 Polyp of colon
CPT/HCPCS: 45380; J2704